=== PATIENT | male | born 1995 | race Caucasian/White ===

== ENCOUNTER 2023-05-01 10:58 | Outpatient (CLI) | payer OTHER, SELFPAY ==
--- NOTE | ~2023-05-01 | US_ITS ---
US renal BI 05/01/2023 11:28 Procedure: Realtime transabdominal ultrasound of the kidneys and bladder. Indication: Elevated creatinine Comparison: No prior studies for comparison. Findings: Renal echotexture is normal bilaterally without hydronephrosis, contour deforming mass or r enal calculus. The right kidney measures 10.3 cm and left kidney measures 11.2 cm. Bladder within no rmal limits. Impression: 1: Unremarkable renal ultrasound. No stones, masses or hydronephrosis. Reviewed, dictated and finalized at location B. Impression: 1: Unremarkable renal ultrasound. No stones, masses or hydronephrosis.
== END 2023-05-01 10:59 | disposition home or self-care (01) ==
LOC: ANHIMG 11:01
DX: R79.89 Other specified abnormal findings of blood chemistry (principal)
CPT/HCPCS: 76775

== ENCOUNTER 2023-09-26 18:18 | Emergency (ER) | payer OTHER, SELFPAY ==
--- NOTE | ~2023-09-26 | CT_ITS ---
EXAMINATION: CT diagnostic chest w con DATE: 09/26/2023 21:36 INDICATION: chest wall trauma, pain to sternum TECHNIQUE: Computed tomography (CT) of the chest was performed with 100 mL Omnipaque-350 intravenous contrast. Automated exposure control and iterative reconstruction technique were employed. The dose-l ength product was 346.79 mGy-cm. COMPARISON: None. FINDINGS: CHEST: Thoracic aorta: No significant dilation or calcification. Lung parenchyma and airways: Minimal dependent scar/atelectasis. Lungs and airways are otherwise kylee r. Thoracic inlet, axillae and chest wall: Mild bilateral gynecomastia. No thyroid mass. No axillary lym phadenopathy. Mediastinum: No mass or lymphadenopathy. Heart and pericardium: Normal heart size. No pericardial effusion. Coronary artery calcifications: Absent. Pleura: No effusion or mass. Upper abdomen: No significant finding. Thoracic bones: No acute osseous finding in the chest. IMPRESSION: No acute thoracic process detected. Reviewed, dictated and finalized at location K. D SCOUT
[2023-09-26 18:45] VITALS: BP 143/85; PULSE 57; RESP 20; TEMP 36.8; O2SAT 99
[2023-09-26 20:55] VITALS: BP 123/67; PULSE 50; RESP 16; TEMP 36.7; O2SAT 100
--- NOTE | 2023-09-26 21:03 | WC.ED.TRAUMA ---
HPI - Trauma General Chief Complaint: Extremity Injury, Upper Stated Complaint: chest soreness from injury Time Seen by Provider: 09/26/23 20:23 History of Present Illness HPI narrative: 28-year-old male reports for evaluation for anterior chest wall pain and sternum pain after an injury that occurred at 1615 p.m. today. 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 States student tried to pick the patient but failed, fell to the ground and the patient's chest hit the student's head forcefully. He is reporting pain and bruising to his sternum that is worse with movement and deep breathing. He did not hit his head or lose consciousness. Denies other injuries acquired including neck pain or back pain. Related Data Allergies Allergy/AdvReac Type Severity Reaction Status Date / Time Cephalosporins Allergy Mild HIVES Verified 05/10/11 10:46 Penicillins Allergy Mild Rash Verified 09/26/23 18:51 Sulfa (Sulfonamide Allergy Mild HIVES Verified 05/10/11 10:46 Antibiotics) Review of Systems Review of Systems: CONSTITUTIONAL: Denies fever, chills, or sweats. EYES: Denies visual changes, redness, or discharge. ENT: Denies rhinorrhea, congestion, sore throat, or otalgia. CARDIOVASCULAR: See HPI RESPIRATORY: Denies cough or dyspnea. GASTROINTESTINAL: Denies abdominal pain, nausea, vomiting, or diarrhea. GENITOURINARY: Denies dysuria or hematuria. SKIN: Denies rash or itching. MUSCULOSKELETAL: See HPI NEUROLOGIC: Denies headache, numbness, or weakness. PSYCHIATRIC: Denies anxiety or depression. Exam Narrative: GENERAL: Well-appearing, well-nourished, and in no acute distress. HEAD: Normocephalic, atraumatic. EYES: PERRLA and EOMI. ENT: Nares clear, no rhinorrhea or epistaxis. Mucous membranes moist. NECK: No midline cervical spinous tenderness, step-offs or deformities. BACK: No midline thoracolumbar spinous tenderness, step-offs or deformities. CHEST: Clear to auscultation. No respiratory distress. Tenderness throughout the sternum with overlying ecchymosis. Tenderness to the left and right sternal border. No step-offs, crepitus or obvious deformity. HEART: Regular rate and rhythm. No murmur heard. Normal peripheral pulses. ABDOMEN: Soft, nontender, nondistended, normal active bowel sounds. EXTREMITIES: Normal range of motion. No edema. SKIN: Warm, dry, no rash. NEURO: No focal deficits. Alert and oriented x3 Course Vital Signs Vital signs: Vital Signs Temperature 98.2 F 09/26/23 18:45 Pulse Rate 57 L 09/26/23 18:45 Respiratory Rate 20 09/26/23 18:45 Blood Pressure 143/85 H 09/26/23 18:45 Pulse Oximetry 99 09/26/23 18:45 Oxygen Delivery Room Air 09/26/23 18:45 Temperature 98.0 F 09/26/23 20:55 Pulse Rate 57 L 09/26/23 23:01 Respiratory Rate 14 09/26/23 23:01 Blood Pressure 117/73 09/26/23 23:01 Pulse Oximetry 100 09/26/23 23:01 Oxygen Delivery Room Air 09/26/23 18:45 MDM - Trauma MDM Narrative Medical decision making narrative: 28-year-old male reports for evaluation for chest wall pain after a wrestling injury that occurred at 1615 today. See HPI for further history. Triage vital significant for mild bradycardia 57, otherwise unremarkable. Exam is significant for the above. CBC unremarkable. BMP does show a BUN of [address] chest shows no acute thoracic process detected. Labs and imaging discussed with the patient. He does endorse a history of elevated creatinine, his last creatinine was 1.5. Encouraged him to follow closely with his PCP. Advised Tylenol for pain control. Heart rate in the 50s during his stay. He is young and active, likely parasympathetic overdrive. He is asymptomatic. Strict ED return precautions discussed. He is agreeable with the plan verbalized understanding. Discharged in stable condition. Lab Data 09/26/23 21:16 09/26/23 21:24 Labs:
[2023-09-26] MEDS: CYCLOBENZAPRINE HCL 10 MG TABLET PO (21:15)
--- NOTE | 2023-09-26 21:20 | PC.NURSE ---
toradol not administered with flexeril because pt states they had ibuprofen @1700 and requested to wait another hour before having another NSAID
[2023-09-26 21:22] LABS: Basophils Percent Auto 0.3 % (0.2-1.2); Eosinophils Absolute Auto 0.1 K/mm3 (0-0.3); Eosinophils Percent Auto 1.7 % (0-4.4); Hematocrit 45.4 % (42.0-52.0); Hemoglobin 15.3 g/dL (14.0-18.0); Immature Granulocyte Absolute 0.02 K/mm3 (0.00-0.031); Immature Granulocyte Percent A 0.3 % (0-0.5); Lymphocytes Absolute Auto 1.81 K/mm3 (0.9-3.2); Lymphocytes Percent Auto 25.4 % (18.3-44.2); Mean Corpuscular HGB Conc 33.7 g/dl (32-36); Mean Corpuscular Hemoglobin 30.2 pg (26-34); Mean Corpuscular Volume 89.5 fl (80-100); Mean Platelet Volume 9.8 fl (7.4-10.4); Monocytes Absolute Auto 0.6 K/mm3 (0.1-0.6); Monocytes Percent Auto 8.3 % (2.6-8.5); Neutrophils Absolute Auto 4.6 K/mm3 (1.3-6.7); Platelet Count Result 205 k/mm3 (150-375); Red Blood Count 5.07 M/mm3 (4.6-6.20); Red Cell Distribution Width 11.8 % (11.5-14.5); White Blood Count 7.1 K/mm3 (4.5-10.0)
[2023-09-26 21:28] LABS: Estimated CRCL calculation 61 ml/min; Estimated Glomerular Filt Rate 52
[2023-09-26 21:33] LABS: Anion Gap 5 mmol/L (8-16); Blood Urea Nitrogen 21 mg/dL (9-20); Calcium 9.1 mg/dL (8.4-10.2); Carbon Dioxide 29 mmol/L (22-30); Chloride 102 mmol/L (98-107); Estimated CRCL calculation 69 ml/min; Estimated Glomerular Filt Rate > 60; Glucose 88 mg/dL (65-110); Potassium 3.8 mmol/L (3.4-5.0); Sodium 136 mmol/L (137-145)
[2023-09-26] MEDS: SODIUM CHLORIDE 0.9% IV 1,000 ML 999 ML IV CONT (22:05)
[2023-09-26 23:01] VITALS: BP 117/73; PULSE 57; RESP 14; O2SAT 100
== END 2023-09-26 23:02 | disposition home or self-care (01) ==
PROVIDERS: Emergency Provider Physician Assistant
DX: S20.219A Contusion of unspecified front wall of thorax, initial encounter (principal); W03.XXXA Other fall on same level due to collision with another person, initial encounter
CPT/HCPCS: 36415; 71260; 80048; 85025; 96360; 99284; A9270; J7030; Q9967